=== PATIENT | male | born 1995 | race Caucasian/White ===

== ENCOUNTER → 2016-12-25 | Outpatient (CLI) | payer OTHER ==
[2016-12-25 16:40] LABS: MEAN CORPUSCULAR HGB CONC 30.6 g/dl (32-36); PLATELET COUNT 309 K/uL (130-400)
[2016-12-25 17:10] LABS: ALT/SGPT 18 U/L (12-78); BLOOD UREA NITROGEN 9 mg/dl (7-18); BUN/CREATININE RATIO 9.1 (10-20); CALCIUM 8.6 mg/dl (8.5-10.1); CARBON DIOXIDE 28 mmol/L (21-32); CHLORIDE 108 mmol/L (98-107); CHOLESTEROL 127 mg/dl (0-200); CREATININE 1.02 mg/dl (0.60-1.40); GLUCOSE 84 mg/dl (70-99); POTASSIUM 3.9 mmol/L (3.5-5.1); SODIUM 140 mmol/L (136-145)
[2016-12-25 17:13] LABS: HEMATOCRIT 37.3 % (42-52); MEAN CELL VOLUME 74.2 fL (80-100); MEAN CORPUSCULAR HEMOGLOBIN 22.7 pg (25-34); RED BLOOD COUNT 5.03 M/uL (4.7-6.1); WHITE BLOOD COUNT 13.28 K/uL (4.8-10.8)
[2016-12-25 17:14] LABS: BASO ABS # 0.12 K/uL (0-0.2); BASOPHIL % 0.9 % (0-2); COMPLETE YES; EOSINOPHIL % 4.3 %; LYMPH ABS # 0.92 K/uL (1.2-3.4); LYMPHOCYTE % 6.9 %; NEUTROPHILS % 81.9 %; OVALOCYTES 1+
[2016-12-25 17:19] LABS: ALKALINE PHOSPHATASE 25 U/L (45-117); AST/SGOT 16 U/L (15-37); CHOLESTEROL/HDL RATIO 2.2; HDL CHOLESTEROL 58 mg/dl; LDL CHOLESTEROL CALCULATED 56 mg/dl; THYROID STIMULATING HORMONE 0.412 uIu/ml (0.300-4.500); TRIGLYCERIDES 65 mg/dl (0-150); VERY LOW DENSITY LIPOPROT CALC 13 mg/dl
== END | disposition home or self-care (01) ==
LOC: C.LAB 15:53
PROVIDERS: ATTEND Psychiatry & Neurology Addiction Psychiatry
DX: F88 Other disorders of psychological development (principal)